=== PATIENT | male | born 1955 | race Caucasian/White ===

== ENCOUNTER 2017-03-31 08:00 | Outpatient (CLI) | payer BC | END 2017-03-31 08:01 | disposition home or self-care (01) | LOC: BICCT 08:00 | PROVIDERS: ATTEND Family Medicine | DX: I71.4 Abdominal aortic aneurysm, without rupture (principal); I72.3 Aneurysm of iliac artery; I77.1 Stricture of artery; K57.30 Diverticulosis of large intestine without perforation or abscess without bleeding | CPT/HCPCS: 75635 ==

== ENCOUNTER 2019-05-09 07:33 | Outpatient (CLI) | payer BC ==
--- NOTE | 2019-05-09 08:55 | MRI ---
MR the lumbar spine without contrast: 05/09/2019 History: Left lower extremity radiculopathy COMPARISON: None. TECHNIQUE: Multiplanar multisequence MR images were obtained of lumbar spine without IV contrast FINDINGS: On the basis of 5 lumbar type vertebral bodies, conus medullaris terminates at theL1 level. Sagittal STIR imaging demonstrates no focal area of osseous marrow edema. T12-L1:No significant central canal or neural foraminal stenosis. L1-2:Mild disc space narrowing and minimal disc bulge. No significant central canal or neural foramin al stenosis. L2-3:There is disc space narrowing with disc desiccation and mild disc bulge. Mild facet hypertrophy noted bilaterally with no significant central canal or neural foraminal stenosis. L3-4:There is disc space narrowing, disc desiccation, degenerative endplate change, and mild disc bul ge. Mild bilateral facet hypertrophy. No significant central canal stenosis. There is osteophyte extending posteriorly into the left neural foramen with mild left neural foraminal stenosis. No signi ficant right neural foraminal stenosis. L4-5:There is disc desiccation and mild disc bulge. Mild bilateral facet hypertrophy. There is a smal l disc herniation with superior migration in the left neural foraminal region causing a moderate degree of left neural foraminal stenosis. No significant central canal or right neural foraminal sten osis. L5-S1:There is disc space narrowing and disc desiccation with mild disc bulge. No central canal steno sis. Bilateral L5 pars defects are noted. There is mild right and moderate left neural foraminal stenosis. Image retroperitoneal structures demonstrateno acute findings. Sigmoid diverticulosis noted. IMPRESSION: Multilevel degenerative change within the lumbar spine as detailed above.
== END 2019-05-09 07:34 | disposition home or self-care (01) ==
LOC: TBSIIMAG 07:33
PROVIDERS: ATTEND Physician Assistant
DX: M43.10 Spondylolisthesis, site unspecified (principal); M54.10 Radiculopathy, site unspecified; M47.816 Spondylosis without myelopathy or radiculopathy, lumbar region
CPT/HCPCS: 72148

== ENCOUNTER 2023-12-17 06:58 | Outpatient (CLI) | payer BC | END 2023-12-17 06:59 | disposition home or self-care (01) | LOC: BICULT 06:58 | PROVIDERS: ATTEND Internal Medicine Cardiovascular Disease | DX: I71.43 Infrarenal abdominal aortic aneurysm, without rupture (principal); K76.0 Fatty (change of) liver, not elsewhere classified | CPT/HCPCS: 76700 ==